=== PATIENT | female | born 1955 | race Caucasian/White ===

== ENCOUNTER → 2016-08-09 | Outpatient (CLI) | payer BC ==
[2015-06-27 15:21] VITALS: BP 122/80
[~2016-08-09] MED LIST: ASPIRIN 32325 MG/TA1 PO; ATORVASTATIN CA10 MG PO; CHILDREN'S ASPI81 M1 PO; COZAAR25 MG PO; FIORINAL 50-321 EACH PO; HCTZ 25MG25 MG; LORTAB 5/500 501 TAB PO; MACROBID 1100 MG/CAP; METFORMIN500 MG PO; MULTI VITAMINS1 TAB PO; NORCO 325 MG-51 TAB PO; NORVASC5 MG; PLAVIX 75MG TAB75 MG PO; RANITIDINE HCL150 MG PO; SERTRALINE HCL50 MG PO
== END ==
LOC: MAMMO 08:42
DX: Z12.31 Encounter for screening mammogram for malignant neoplasm of breast (principal)
CPT/HCPCS: G0202

== ENCOUNTER → 2017-08-08 | Outpatient (CLI) | payer OTHER ==
[2015-06-27 15:21] VITALS: BP 122/80
== END ==
LOC: MAMMO 13:45
DX: Z12.31 Encounter for screening mammogram for malignant neoplasm of breast (principal)

== ENCOUNTER 2017-09-13 15:00 | Outpatient (RCR) | payer OTHER ==
[2015-06-27 15:21] VITALS: BP 122/80
== END 2017-09-13 15:30 | disposition home or self-care (01) ==
LOC: PT 15:00
DX: M25.562 Pain in left knee (principal)

== ENCOUNTER 2017-11-09 19:41 | Emergency (ER) | payer OTHER ==
[~2017-11-09] VITALS: Ht 162.6 cm; Wt 57.3 kg
[2017-11-09] MEDS ORDERED: CLOPIDOGREL PO (20:15)
[2017-11-09] MEDS ORDERED: WELLBUTRIN XL150 M2 PO (20:15)
[2017-11-09] MEDS ORDERED: LIPITOR 10M10 MG/TAB PO (20:15)
[2017-11-09] MEDS ORDERED: TYLENOL325 M1 PO (20:15)
[2017-11-09] MEDS ORDERED: TIAZAC120 MG PO (20:16)
[2017-11-09] MEDS ORDERED: COZAAR25 M1 PO (20:16)
[2017-11-09] MEDS ORDERED: GLUCOPHAGE500 MG/TAB PO (20:16)
[2017-11-09] MEDS ORDERED: MELATIN 3 MG-11 TAB PO (20:16)
[2017-11-09] MEDS ORDERED: MULTIVITAMIN1 SGL PO (20:17)
[2017-11-09] MEDS ORDERED: DESYREL 100MG100 MG PO (20:17)
[2017-11-09] MEDS ORDERED: ZOLOFT 50MG50 MG PO (20:17)
[2017-11-09] MEDS ORDERED: NITROSTAT0.4 M1 SL (20:17)
[2017-11-09] MEDS ORDERED: TOPAMAX50 M1 PO (20:17)
[2017-11-09] MEDS ORDERED: VITAMIN C500 M7 PO (20:18)
[2017-11-09 20:52] LABS: EOS # 0.2 (0.04-0.40); EOS % 2.4 % (1.0-5.0); HEMATOCRIT 35.6 % (37.0-47.0); HEMOGLOBIN 11.7 g/dL (12.5-16.0); LYMPH# 1.3 (1.50-4.00); MEAN CELL VOLUME 93 fl (78-100); MEAN CORPUSCULAR HEMOGLOBIN 31 pg (27-31); MEAN CORPUSCULAR HGB CONC 33 g/dL (33-37); MEAN PLATELET VOLUME 11.1 fl (7.4-10.4); MONO # 0.6 (0.20-0.80); NEU # 4.2 (1.40-6.50); PLATELET COUNT 189 K/mm3 (130-400); RED BLOOD COUNT 3.83 M/mm3 (4.10-5.30); RED CELL DISTRIBUTION WIDTH 12.6 % (11.5-14.5); WHITE BLOOD COUNT 6.2 K/mm3 (4.8-10.8)
[2017-11-09 21:04] LABS: BUN/CREATININE RATIO 17.9 (6.0-26.0); CALCIUM 9.2 mg/dL (8.4-10.2); POTASSIUM 4.2 mmol/L (3.6-5.0); TOTAL BILIRUBIN 0.5 mg/dL (0.2-1.3); TOTAL PROTEIN 6.5 g/dL (6.3-8.2)
[2017-11-09 21:47] LABS: URINE APPEARANCE CLEAR; URINE COLOR YELLOW
[2017-11-09 21:48] LABS: URINE BILIRUBIN NEGATIVE (NEGATIVE); URINE BLOOD TRACE (NEGATIVE); URINE GLUCOSE NEGATIVE (NEGATIVE); URINE KETONE NEGATIVE (NEGATIVE); URINE LEUKOCYTE ESTERASE TRACE (NEGATIVE); URINE MUCUS PRESENT (NOT PRESENT); URINE NITRATE NEGATIVE (NEGATIVE); URINE PROTEIN(semi-quant) TRACE mg/dL (NEGATIVE); URINE UROBILINOGEN NORMAL (NORMAL)
[2017-11-09 22:20] VITALS: BP 157/81
[2017-11-13 09:36] LABS: LYME DISEASE PCR BLOOD AMS
== END 2017-11-09 22:20 | disposition short-term general hospital (02) ==
LOC: ED 19:41
PROVIDERS: Nurse Practitioner Primary Care
DX: R51 Headache (principal); R41.82 Altered mental status, unspecified; R29.898 Other symptoms and signs involving the musculoskeletal system; Z86.73 Personal history of transient ischemic attack (TIA), and cerebral infarction without residual deficits; R40.2412 Glasgow coma scale score 13-15, at arrival to emergency department; I48.91 Unspecified atrial fibrillation; Z79.02 Long term (current) use of antithrombotics/antiplatelets; E11.9 Type 2 diabetes mellitus without complications; I10 Essential (primary) hypertension; Z95.0 Presence of cardiac pacemaker
CPT/HCPCS: J2405

== ENCOUNTER 2018-03-15 18:46 | Emergency (ER) | payer OTHER ==
[~2018-03-15] VITALS: Ht 162.6 cm; Wt 56.4 kg
[~2018-03-15 18:46] MED LIST changes: +CLOPIDOGREL PO; +COZAAR25 M1 PO; +DESYREL 100MG100 MG PO; +GLUCOPHAGE500 MG/TAB PO; +LIPITOR 10M10 MG/TAB PO; +MELATIN 3 MG-11 TAB PO; +MULTIVITAMIN1 SGL PO; +NITROSTAT0.4 M1 SL; +TIAZAC120 MG PO; +TOPAMAX50 M1 PO; +TYLENOL325 M1 PO; +VITAMIN C500 M7 PO; +WELLBUTRIN XL150 M2 PO; +ZOLOFT 50MG50 MG PO
[2018-03-15] MEDS ORDERED: CLOPIDOGREL75 M2 (19:06)
[2018-03-15] MEDS ORDERED: TOPIRAMATE25 MG PO (19:07)
[2018-03-15] MEDS ORDERED: TYLENOL 325MG325 MG PO (19:08)
[2018-03-15] MEDS ORDERED: TESSALON PERLE100 M1 PO (19:09)
[2018-03-15] MEDS ORDERED: FIORINAL 50-321 EACH PO (19:09)
[2018-03-15] MEDS ORDERED: TIAZAC120 MG PO (19:10)
[2018-03-15] MEDS ORDERED: MULTIVITAMIN1 SGL PO (19:11)
[2018-03-15] MEDS ORDERED: GLUCOPHAGE500 MG/TAB PO (19:11)
[2018-03-15] MEDS ORDERED: ZOLOFT 50MG50 MG PO (19:12)
[2018-03-15] MEDS ORDERED: NITROSTAT0.4 M1 SL (19:12)
[2018-03-15] MEDS ORDERED: VITAMIN C PURE500 M1 PO (19:13)
[2018-03-15 20:16] LABS: EOS # 0.1 (0.04-0.40); EOS % 1.8 % (1.0-5.0); HEMATOCRIT 34.3 % (37.0-47.0); HEMOGLOBIN 11.1 g/dL (12.5-16.0); LYMPH# 1.3 (1.50-4.00); MEAN CELL VOLUME 93 fl (78-100); MEAN CORPUSCULAR HEMOGLOBIN 30 pg (27-31); MEAN CORPUSCULAR HGB CONC 32 g/dL (33-37); MONO # 0.5 (0.20-0.80); NEU # 4.7 (1.40-6.50); PLATELET COUNT 174 K/mm3 (130-400); RED BLOOD COUNT 3.68 M/mm3 (4.10-5.30); RED CELL DISTRIBUTION WIDTH 12.3 % (11.5-14.5); WHITE BLOOD COUNT 6.5 K/mm3 (4.8-10.8)
[2018-03-15 20:18] LABS: MEAN PLATELET VOLUME 12.1 fl (7.4-10.4)
[2018-03-15 20:26] LABS: ALBUMIN 4.1 g/dL (3.5-5.0); CALCIUM 8.9 mg/dL (8.4-10.2); POTASSIUM 4.2 mmol/L (3.6-5.0); TOTAL BILIRUBIN 0.5 mg/dL (0.2-1.3); TOTAL PROTEIN 6.5 g/dL (6.3-8.2)
[2018-03-16 00:01] VITALS: BP 121/68
[2018-03-16 06:38] LABS: URINE APPEARANCE CLOUDY; URINE BILIRUBIN NEGATIVE (NEGATIVE); URINE BLOOD NEGATIVE (NEGATIVE); URINE COLOR YELLOW; URINE GLUCOSE NEGATIVE (NEGATIVE); URINE KETONE NEGATIVE (NEGATIVE); URINE LEUKOCYTE ESTERASE TRACE (NEGATIVE); URINE NITRATE NEGATIVE (NEGATIVE); URINE PROTEIN(semi-quant) TRACE mg/dL (NEGATIVE); URINE UROBILINOGEN NORMAL (NORMAL)
== END 2018-03-16 00:01 | disposition home or self-care (01) ==
LOC: ED 18:46
PROVIDERS: Nurse Practitioner Family
DX: E86.0 Dehydration (principal); I95.1 Orthostatic hypotension; N28.9 Disorder of kidney and ureter, unspecified; I10 Essential (primary) hypertension; R07.89 Other chest pain; I48.91 Unspecified atrial fibrillation; Z79.02 Long term (current) use of antithrombotics/antiplatelets; E11.9 Type 2 diabetes mellitus without complications; Z86.73 Personal history of transient ischemic attack (TIA), and cerebral infarction without residual deficits; Z95.0 Presence of cardiac pacemaker; Z79.899 Other long term (current) drug therapy; Z79.84 Long term (current) use of oral hypoglycemic drugs
CPT/HCPCS: J2405; J7030

== ENCOUNTER → 2019-08-21 | Outpatient (CLI) | payer OTHER ==
[~2019-08-21] MED LIST changes: +CLOPIDOGREL75 M2; +TESSALON PERLE100 M1 PO; +TOPIRAMATE25 MG PO; +TYLENOL 325MG325 MG PO; +VITAMIN C PURE500 M1 PO
== END ==
LOC: LAB 11:15
DX: R05 Cough (principal); R06.02 Shortness of breath

== ENCOUNTER → 2020-11-03 | Outpatient (CLI) | payer BC ==
[~2020-11-03] MED LIST changes: -CLOPIDOGREL75 M2; +CLOPIDOGREL75 M2 PO; +DAILY VALUE1 EACH PO; +DEXAMETHASONE2 M1 PO; +GLUCOPHAGE PO; +LOSARTAN POTASS50 M1 PO; +VITAMIN C500 M6 PO
== END ==
LOC: MAMMO 11:27
DX: Z12.31 Encounter for screening mammogram for malignant neoplasm of breast (principal)

== ENCOUNTER 2021-03-06 05:51 | Emergency (ER) | payer BC ==
[~2021-03-06] VITALS: Ht 162.6 cm; Wt 65.9 kg
[~2021-03-06 05:51] MED LIST changes: -DEXAMETHASONE2 M1 PO
[2021-03-06 08:12] LABS: BASO # 0.03 K/mm3 (0.02-0.10); EOS # 0.18 K/mm3 (0.04-0.40); EOS % 2.8 % (1.0-5.0); HEMATOCRIT 35.8 % (37.0-47.0); HEMOGLOBIN 11.7 g/dL (12.5-16.0); LYMPH# 1.16 K/mm3 (1.50-4.00); MEAN CELL VOLUME 92 fl (78-100); MEAN CORPUSCULAR HEMOGLOBIN 30 pg (27-31); MEAN CORPUSCULAR HGB CONC 33 g/dL (33-37); MEAN PLATELET VOLUME 10.9 fl (7.4-10.4); MONO # 0.49 K/mm3 (0.20-0.80); NEU # 4.64 K/mm3 (1.40-6.50); PLATELET COUNT 284 K/mm3 (130-400); RED BLOOD COUNT 3.88 M/mm3 (4.10-5.30); RED CELL DISTRIBUTION WIDTH 12.4 % (11.5-14.5); WHITE BLOOD COUNT 6.5 K/mm3 (4.8-10.8)
[2021-03-06 08:21] LABS: STREP SCREEN NEGATIVE (NEGATIVE)
[2021-03-06 08:25] LABS: ALBUMIN 3.8 g/dL (3.4-4.8); POTASSIUM 3.7 mmol/L (3.5-5.1)
[2021-03-06 08:27] LABS: CALCIUM 8.8 mg/dL (8.3-10.5)
[2021-03-06 08:28] LABS: TOTAL PROTEIN 6.2 g/dL (6.2-8.1)
[2021-03-06 08:30] LABS: TOTAL BILIRUBIN 0.5 mg/dL (0.2-1.2)
[2021-03-06] MEDS ORDERED: DEXAMETHASONE2 M1 PO (09:13)
[2021-03-06 09:35] VITALS: BP 110/74
== END 2021-03-06 09:40 | disposition home or self-care (01) ==
LOC: ED 05:51
PROVIDERS: Family Medicine
DX: U07.1 COVID-19 (principal); I10 Essential (primary) hypertension; E11.9 Type 2 diabetes mellitus without complications; Z73.0 Burn-out; Z79.84 Long term (current) use of oral hypoglycemic drugs; Z79.899 Other long term (current) drug therapy

== ENCOUNTER → 2021-04-05 | Outpatient (CLI) | payer BC ==
[~2021-04-05] MED LIST changes: +DEXAMETHASONE2 M1 PO
[2021-04-05 10:30] LABS: POTASSIUM 4.1 mmol/L (3.5-5.1)
[2021-04-05 10:32] LABS: CALCIUM 9.4 mg/dL (8.3-10.5)
[2021-04-05 10:33] LABS: TOTAL PROTEIN 6.5 g/dL (6.2-8.1)
[2021-04-05 10:35] LABS: TOTAL BILIRUBIN 0.6 mg/dL (0.2-1.2)
== END ==
LOC: LAB 10:07
PROVIDERS: Family Medicine
DX: E11.9 Type 2 diabetes mellitus without complications (principal); I10 Essential (primary) hypertension

== ENCOUNTER 2021-08-03 08:16 | Emergency (ER) | payer BC ==
[~2021-08-03] VITALS: Ht 154.9 cm; Wt 65.5 kg
[2021-08-03 09:00] LABS: BASO # 0.03 K/mm3 (0.02-0.10); EOS # 0.14 K/mm3 (0.04-0.40); EOS % 2.4 % (1.0-5.0); HEMATOCRIT 38.8 % (37.0-47.0); HEMOGLOBIN 12.5 g/dL (12.5-16.0); LYMPH# 1.15 K/mm3 (1.50-4.00); MEAN CELL VOLUME 93 fl (78-100); MEAN CORPUSCULAR HEMOGLOBIN 30 pg (27-31); MEAN CORPUSCULAR HGB CONC 32 g/dL (33-37); MEAN PLATELET VOLUME 11.3 fl (7.4-10.4); MONO # 0.52 K/mm3 (0.20-0.80); NEU # 4.04 K/mm3 (1.40-6.50); PLATELET COUNT 231 K/mm3 (130-400); RED BLOOD COUNT 4.18 M/mm3 (4.10-5.30); RED CELL DISTRIBUTION WIDTH 12.2 % (11.5-14.5); WHITE BLOOD COUNT 5.9 K/mm3 (4.8-10.8)
[2021-08-03 09:14] LABS: ALBUMIN 4.3 g/dL (3.4-4.8); POTASSIUM 4.4 mmol/L (3.5-5.1)
[2021-08-03 09:16] LABS: CALCIUM 9.5 mg/dL (8.3-10.5)
[2021-08-03 09:17] LABS: TOTAL PROTEIN 6.6 g/dL (6.2-8.1)
[2021-08-03 09:18] LABS: TOTAL BILIRUBIN 0.6 mg/dL (0.2-1.2)
[2021-08-03 10:07] VITALS: BP 109/90
== END 2021-08-03 10:10 | disposition home or self-care (01) ==
LOC: ED 08:16
PROVIDERS: Physician Assistant
DX: R07.89 Other chest pain (principal); M79.601 Pain in right arm; Z95.0 Presence of cardiac pacemaker; Z88.6 Allergy status to analgesic agent; X50.0XXA Overexertion from strenuous movement or load, initial encounter

== ENCOUNTER → 2021-09-08 | Outpatient (CLI) | payer BC | LOC: LAB 09:38 | DX: E11.22 Type 2 diabetes mellitus with diabetic chronic kidney disease (principal); N18.30 Chronic kidney disease, stage 3 unspecified; E78.00 Pure hypercholesterolemia, unspecified; F32.A Depression, unspecified ==

== ENCOUNTER → 2021-12-01 | Outpatient (CLI) | payer BC | LOC: RAD 11:36 | DX: I12.9 Hypertensive chronic kidney disease with stage 1 through stage 4 chronic kidney disease, or unspecified chronic kidney disease (principal); N18.31 Chronic kidney disease, stage 3a ==

== ENCOUNTER 2023-01-03 13:00 | Outpatient (RCR) | payer BC | END 2023-01-14 | disposition home or self-care (01) | LOC: PT | DX: M67.819 Other specified disorders of synovium and tendon, unspecified shoulder (principal) ==

== ENCOUNTER 2023-07-23 18:06 | Emergency (ER) | payer MEDICARE ==
[~2023-07-23] VITALS: Ht 157.5 cm; Wt 56.8 kg
[~2023-07-23 18:06] MED LIST changes: +TOPCARE OMEPRAZ20 MG PO
[2023-07-23] MEDS ORDERED: ATORVASTATIN CA40 MG PO (18:21)
[2023-07-23] MEDS ORDERED: NORTRIPTYLINE H25 M1 PO (18:21)
[2023-07-23] MEDS ORDERED: NADOLOL20 M1 PO (18:22)
[2023-07-23] MEDS ORDERED: CARDIZEM CD 24240 MG PO (18:23)
[2023-07-23 19:02] VITALS: BP 117/91
== END 2023-07-23 19:02 | disposition home or self-care (01) ==
LOC: ED 18:06
DX: T88.1XXA Other complications following immunization, not elsewhere classified, initial encounter (principal); L53.9 Erythematous condition, unspecified; L29.9 Pruritus, unspecified

== ENCOUNTER → 2023-09-15 | Outpatient (CLI) | payer MEDICARE ==
[~2023-09-15] MED LIST changes: +ATORVASTATIN CA40 MG PO; +CARDIZEM CD 24240 MG PO; +NADOLOL20 M1 PO; +NORTRIPTYLINE H25 M1 PO
[2023-11-03 11:14] LABS: CREATININE OTHER SOURCE 99.2
[2023-11-04 11:01] LABS: CALCIUM 9.2 mg/dL (8.3-10.5)
== END ==
LOC: LAB 09:27
PROVIDERS: Internal Medicine Nephrology
DX: I12.9 Hypertensive chronic kidney disease with stage 1 through stage 4 chronic kidney disease, or unspecified chronic kidney disease (principal); N18.31 Chronic kidney disease, stage 3a

== ENCOUNTER → 2024-01-25 | Outpatient (CLI) | payer MEDICARE | LOC: MAMMO 15:19 | DX: Z12.31 Encounter for screening mammogram for malignant neoplasm of breast (principal) ==

== ENCOUNTER 2024-03-10 18:25 | Emergency (ER) | payer MEDICARE ==
[~2024-03-10] VITALS: Wt 56.8 kg
[2024-03-10 18:51] LABS: BASO # 0.03 K/mm3 (0.02-0.10); EOS # 0.18 K/mm3 (0.04-0.40); EOS % 2.9 % (1.0-5.0); HEMATOCRIT 37.8 % (37.0-47.0); HEMOGLOBIN 12.2 g/dL (12.5-16.0); LYMPH# 1.11 K/mm3 (1.50-4.00); MEAN CELL VOLUME 96 fl (78-100); MEAN CORPUSCULAR HEMOGLOBIN 31 pg (27-31); MEAN CORPUSCULAR HGB CONC 32 g/dL (33-37); MEAN PLATELET VOLUME 10.7 fl (7.4-10.4); MONO # 0.72 K/mm3 (0.20-0.80); NEU # 4.24 K/mm3 (1.40-6.50); PLATELET COUNT 211 K/mm3 (130-400); RED BLOOD COUNT 3.92 M/mm3 (4.10-5.30); RED CELL DISTRIBUTION WIDTH 12.5 % (11.5-14.5); WHITE BLOOD COUNT 6.3 K/mm3 (4.8-10.8)
[2024-03-10 18:57] LABS: SODIUM 139 mmol/L (136-145)
[2024-03-10 18:58] LABS: ALBUMIN 4.2 g/dL (3.4-4.8); CALCIUM 9.2 mg/dL (8.3-10.5)
[2024-03-10 19:00] LABS: CARBON DIOXIDE 20 mmol/L (23-31)
[2024-03-10 19:01] LABS: GLUCOSE 103 mg/dL (65-105); TOTAL BILIRUBIN 0.4 mg/dL (0.2-1.2); TOTAL PROTEIN 6.5 g/dL (6.2-8.1)
[2024-03-10 19:04] LABS: AST-SGOT 24 U/L (5-34)
[2024-03-10 19:07] LABS: ALT/SGPT 36 U/L (0-55)
[2024-03-10 19:25] LABS: TROPONIN-I < 0.030 ng/mL (0.00-0.033)
[2024-03-10 19:55] LABS: D-DIMER 0.64 mg/L FEU (0.15-0.50)
[2024-03-10] MEDS ORDERED: Iohexol 350 - 100 ML VIAL IV ONE (21:39)
[2024-03-10] MEDS ORDERED: NS 1,000 ML IV SCH (21:45)
[2024-03-10] MEDS ORDERED: fentaNYL 100 MCG/2 ML VIAL IV ONE (21:45)
[2024-03-10 23:20] VITALS: BP 160/95
== END 2024-03-10 23:20 | disposition home or self-care (01) ==
LOC: ED 18:25
PROVIDERS: Physician Assistant
DX: J90 Pleural effusion, not elsewhere classified (principal); M25.512 Pain in left shoulder; R79.1 Abnormal coagulation profile; I44.0 Atrioventricular block, first degree; Z86.73 Personal history of transient ischemic attack (TIA), and cerebral infarction without residual deficits; Z95.0 Presence of cardiac pacemaker; Z79.02 Long term (current) use of antithrombotics/antiplatelets
CPT/HCPCS: J3010; J7030; Q9967